=== PATIENT | male | born 1940 | race Caucasian/White ===

== ENCOUNTER 2023-04-24 16:56 | Emergency (ER) | payer OTHER, SELFPAY ==
[2023-04-24] VITALS (13 sets, daily range): BP systolic 128–163; BP diastolic 74–89; PULSE 69–124; RESP 11–24; TEMP 36.3; O2SAT 94–100; BMI 27.6
--- NOTE | 2023-04-24 17:04 | DI.RAD.S_ITS ---
PROCEDURE: XR HIP W PEL IF DONE EDD MIN 4V INDICATIONS: fall with pain TECHNIQUE: AP pelvis with lateral view(s) of both hips. COMPARISON: None. FINDINGS: Bones: No fractures or dislocations. Pelvic ring appears intact. No suspicious bony lesions. Unremarkable left hip arthroplasty hardware can be seen. There is moderate superior joint space narrowing seen of the right hip, with associated remodeling changes with subchondral sclerosis and osteophyte formation. Age-appropriate lower lumbar spine degenerative changes are noted. Soft tissues: The visualized bowel gas pattern is normal. No suspicious soft tissue calcifications. IMPRESSION: No niharika acute plain film abnormality is seen. If there is point tenderness (or other clinical suspicion for a fracture not seen on these images) then a dedicated CT could be considered for further evaluation, if clinically appropriate. Moderate right hip degenerative change. Unremarkable left hip arthroplasty hardware. Dictated by: Jovani Mattson M.D. on 04/24/2023 at 17:45 Approved by: Jovani Mattson M.D. on 04/24/2023 at 17:46
--- NOTE | 2023-04-24 17:10 | DI.RAD.S_ITS ---
PROCEDURE: XR CHEST 1V INDICATIONS: chest pain TECHNIQUE: One view of the chest was acquired. COMPARISON: None. FINDINGS: Surgical changes and devices: Surgical clips are seen below the left hemidiaphragm. Lungs and pleura: Lungs are clear. No pleural effusions or pneumothorax. Mediastinum: Aortic arch calcification is seen. Heart size is enlarged. Bones and chest wall: No suspicious bony lesions. Overlying soft tissues appear unremarkable. IMPRESSION: No acute cardiopulmonary pathology. Dictated by: Greg Paz M.D. on 04/24/2023 at 18:28 Approved by: Greg Paz M.D. on 04/24/2023 at 18:28
--- NOTE | 2023-04-24 17:42 | PC.NURSE ---
Unable to obtain imaging bc patient would not lay still. pt with seemingly advanced dementia.
[2023-04-24 17:55] LABS: Add Manual Diff / Slide Review NO; Basophils Absolute Auto 100 /uL (0-100); Basophils Percent Auto 0.8 % (0-2); Eosinophils Absolute Auto 200 /uL (0-450); Eosinophils Percent Auto 2.1 % (2-4); Hematocrit 34.3 % (41-53); Hemoglobin 11.4 g/dL (13.5-17.5); Lymphocytes Absolute Auto 1500 /uL (1100-4500); Lymphocytes Percent Auto 14.8 % (25-40); Mean Corpuscular HGB Conc 33.4 % (30-36); Mean Corpuscular Hemoglobin 30.9 PG (26-34); Mean Corpuscular Volume 92.7 fL (80-100); Monocytes Absolute Auto 1000 /uL (0-900); Monocytes Percent Auto 10.3 % (3-14); Neutrophils Absolute Auto 7300 /uL (1500-7000); Platelet Count 335 X10^3/uL (150-400); Red Cell Distribution Width 13.3 % (11.6-14.8); White Blood Cell Count 10.1 X10^3/uL (4.5-11.0)
[2023-04-24] MEDS: MORPHINE 2 MG/ML INJ IV (17:59)
[2023-04-24 18:04] LABS: INR 1.3 (0.9-1.3); Prothrombin Time 14.4 SECONDS (10.1-12.7)
[2023-04-24 18:06] LABS: PTT Partial Thromboplastin Tim 27 SECONDS (26-36)
[2023-04-24 18:09] LABS: Alanine Aminotransferase 22 IU/L (<50); Albumin 3.2 g/dL (3.5-5.0); Alkaline Phosphatase 67 U/L (38-126); Aspartate Aminotransferase 25 IU/L (17-59); BUN Creatinine Ratio 20.8 (6-22); Bilirubin Total 0.5 mg/dL (0.2-1.3); Blood Urea Nitrogen 16 mg/dL (9-20); Calcium 8.7 mg/dL (8.4-10.2); Carbon Dioxide 27 mmol/L (22-32); Chloride 103 mmol/L (98-107); Creatine Kinase 41 U/L (55-170); Estimated Glomerular Filt Rate > 60 mL/min (>60); Globulin 3.1 g/dL (1.7-4.1); Glucose 97 mg/dL (80-110); HEMOLYSIS < 15 (0-50); Lipase 84 U/L (23-300); Magnesium 2.2 mg/dL (1.6-2.3); Potassium 3.7 mmol/L (3.4-5.1); Sodium 135 mmol/L (137-145); Total Protein 6.3 g/dL (6.3-8.2)
[2023-04-24 18:21] LABS: Troponin I < 0.012 ng/mL (0.01-0.034)
--- NOTE | 2023-04-24 18:53 | ED_ITS ---
HPI - Fall <Jude Somers DO - Last Filed: 04/28/23 21:34> General Chief Complaint: Fall Stated Complaint: Fall 3 days ago/ L hip pain/ Head LAC Time Seen by Provider: 04/24/23 17:24 Source: EMS Mode of arrival: EMS Limitations: altered mental status History of Present Illness HPI Narrative: Patient is an 82-year-old male. Has a history of dementia. Can not provide any HPI or review of systems. He is not on anticoagulation. He arrives by EMS for evaluation of he decrease in the ability to get around. He does live at a nursing facility. Apparently had a unwitnessed fall a couple days ago. He sustained a injury to his head. This injury is covered with Steri-Strips. Here in the emergency department he can not provide any specific information but he does seem to be in quite a bit of discomfort with any sort of movement. Unsure if this is in his hips or his lower back or other area of his lower extremities. Related Data Previous Rx's Medication Instructions Recorded nitrofurantoin 100 mg PO Q12H 7 days #14 caps 04/25/23 monohydrate/macrocrystals 100 mg capsule (Macrobid) oxycodone 5 mg tablet 5 mg PO Q6H PRN pain #10 tabs 04/25/23 Allergies Allergy/AdvReac Type Severity Reaction Status Date / Time No Known Drug Allergies Allergy Verified 04/24/23 17:06 Review of Systems <Jude Somers DO - Last Filed: 04/28/23 21:34> Review of Systems ROS Unobtainable: Unobtainable due to medical condition Exam <Jude Somers DO - Last Filed: 04/28/23 21:34> Initial Vital Signs Initial Vital Signs: Vital Signs Temperature 97.3 F L 04/24/23 17:06 Pulse Rate 83 04/24/23 17:06 Respiratory Rate 19 04/24/23 17:06 Blood Pressure 163/84 H 04/24/23 17:06 Pulse Oximetry 99 04/24/23 17:06 Oxygen Delivery Method Room Air 04/24/23 17:06 Const General: No ill appearing HENMT Head: contusion (Left parietal region covered with Steri-Strips) Resp Effort & Inspection: normal respiratory effort Auscultation: clear to auscultation bilaterally Cardio Rate: regular rate Rhythm: regular rhythm GI Inspection: normal to inspection and non-distended Skin Other: Steri-Strips covering a small abrasion/laceration to his left parietal region of his scalp Neuro Other: Patient is alert to person but does not know that he is in the hospital. Does not know the circumstances the why he is here. Does not know what year it is. Extrem Other: No gross deformities. Does not seem to have any discomfort with movement of his upper extremities. His pelvis is stable. Does not have discomfort with flexion extension of his hips knees or ankles bilaterally. No discomfort with palpation of his lower back however trying to sit the patient up or move his legs off the bed causes discomfort although he can not specifically tell where this discomfort is. <Andra Zuniga, DO - Last Filed: 04/26/23 10:56> Initial Vital Signs Initial Vital Signs: Vital Signs Temperature 97.3 F L 04/24/23 17:06 Pulse Rate 83 04/24/23 17:06 Respiratory Rate 19 04/24/23 17:06 Blood Pressure 163/84 H 04/24/23 17:06 Pulse Oximetry 99 04/24/23 17:06 Oxygen Delivery Method Room Air 04/24/23 17:06 <Debra Kerr, DO - Last Filed: 04/27/23 18:44> Initial Vital Signs Initial Vital Signs: Vital Signs Temperature 97.3 F L 04/24/23 17:06 Pulse Rate 83 04/24/23 17:06 Respiratory Rate 19 04/24/23 17:06 Blood Pressure 163/84 H 04/24/23 17:06 Pulse Oximetry 99 04/24/23 17:06 Oxygen Delivery Method Room Air 04/24/23 17:06 Course <Jude Somers, DO - Last Filed: 04/28/23 21:34> Orders Ordered: Discontinued Medications Acetaminophen (Acetaminophen 325 Mg Tablet) 650 mg PO Q6H PRN PRN Reason: Fever/Mild Pain (1-3) Hydrocodone Bitart/Acetaminophen (Hydrocodone/Acet 5/325 Tablet) 1 tab PO NOW ONE Stop: 04/24/23 20:06 Last Admin: 04/24/23 20:07 Dose: 1 tab Documented By: SB Finasteride (Finasteride 5 Mg Tablet) 5 mg PO NOW ONE Stop: 04/25/23 07:56 Last Admin: 04/25/23 08:31 Dose: 5 mg Documented By: RB Lidocaine (Lidocaine Patch 1 Each Adh..Patch) 1 each TOP DAILY VANDANA Last Admin: 04/25/23 08:31 Dose: 1 each Documented By: RB Lidocaine (Remove Lidocaine Patch) 1 each TOP BEDTIME VANDANA Morphine Sulfate (Morphine 2 Mg/Ml Inj) 2 mg IV NOW ONE Stop: 04/24/23 17:54 Last Admin: 04/24/23 17:59 Dose: 2 mg Documented By: MAGDALENA Nitrofurantoin Macrocrystals (Nitrofurantoin Er 100 Mg Capsule) 100 mg PO NOW ONE Stop: 04/25/23 08:04 Last Admin: 04/25/23 08:34 Dose: 100 mg Documented By: RB Nystatin (Nystatin Cream 30 Gm) 1 applic TOP DAILY [facility] Last Admin: 04/25/23 08:31 Dose: 1 applic Documented By: RB Oxybutynin (Oxybutynin 5 Mg Tablet) 5 mg PO TID [facility] Last Admin: 04/25/23 08:31 Dose: 5 mg Documented By: RB Oxycodone HCl (Oxycodone Ir 5 Mg Tablet) 5 mg PO Q6H PRN PRN Reason: Pain, Moderate (4-6) Last Admin: 04/25/23 08:33 Dose: 5 mg Documented By: RB Quetiapine Fumarate (Quetiapine 25 Mg Tablet) 25 mg PO NOW ONE Stop: 04/24/23 21:38 Last Admin: 04/24/23 22:02 Dose: 25 mg Documented By: SB Tamsulosin HCl (Tamsulosin 0.4 Mg Capsule) 0.4 mg PO BID [facility] Last Admin: 04/25/23 08:31 Dose: 0.4 mg Documented By: RB Vital Signs Vital signs: Vital Signs - 8 hr 04/25/23 00:30 04/25/23 01:00 04/25/23 01:00 Pulse Rate 69 70 Respiratory Rate Blood Pressure 152/82 H Pulse Oximetry 96 97 Oxygen Delivery Method 04/25/23 01:30 04/25/23 02:00 04/25/23 02:00 Pulse Rate 79 67 Respiratory Rate 12 Blood Pressure 148/77 H Pulse Oximetry 93 94 Oxygen Delivery Method 04/25/23 02:30 04/25/23 03:00 04/25/23 03:01 Pulse Rate 69 67 66 Respiratory Rate Blood Pressure Pulse Oximetry 97 96 97 Oxygen Delivery Method 04/25/23 03:01 04/25/23 03:30 04/25/23 04:00 Pulse Rate 63 Respiratory Rate Blood Pressure 140/69 128/78 Pulse Oximetry 97 Oxygen Delivery Method 04/25/23 04:00 04/25/23 04:30 04/25/23 05:00 Pulse Rate 68 79 Respiratory Rate Blood Pressure 147/77 H Pulse Oximetry 95 95 Oxygen Delivery Method 04/25/23 05:00 04/25/23 05:30 04/25/23 06:00 Pulse Rate 60 58 L 52 L Respiratory Rate Blood Pressure Pulse Oximetry 97 98 99 Oxygen Delivery Method 04/25/23 06:01 04/25/23 06:01 Pulse Rate 76 Respiratory Rate 16 Blood Pressure 158/80 H Pulse Oximetry 98 Oxygen Delivery Method Room Air <Andra Zuniga, - Last Filed: 04/26/23 10:56> Orders Ordered: Discontinued Medications Acetaminophen (Acetaminophen 325 Mg Tablet) 650 mg PO Q6H PRN PRN Reason: Fever/Mild Pain (1-3) Hydrocodone Bitart/Acetaminophen (Hydrocodone/Acet 5/325 Tablet) 1 tab PO NOW ONE Stop: 04/24/23 20:06 Last Admin: 04/24/23 20:07 Dose: 1 tab Documented By: LESLYE Finasteride (Finasteride 5 Mg Tablet) 5 mg PO NOW ONE Stop: 04/25/23 07:56 Last Admin: 04/25/23 08:31 Dose: 5 mg Documented By: CITLALY Lidocaine (Lidocaine Patch 1 Each Adh..Patch) 1 each TOP DAILY VANDANA Last Admin: 04/25/23 08:31 Dose: 1 each Documented By: RB Lidocaine (Remove Lidocaine Patch) 1 each TOP BEDTIME VANDANA Morphine Sulfate (Morphine 2 Mg/Ml Inj) 2 mg IV NOW ONE Stop: 04/24/23 17:54 Last Admin: 04/24/23 17:59 Dose: 2 mg Documented By: MAGDALENA Nitrofurantoin Macrocrystals (Nitrofurantoin Er 100 Mg Capsule) 100 mg PO NOW ONE Stop: 04/25/23 08:04 Last Admin: 04/25/23 08:34 Dose: 100 mg Documented By: CITLALY Nystatin (Nystatin Cream 30 Gm) 1 applic TOP DAILY VANDANA Last Admin: 04/25/23 08:31 Dose: 1 applic Documented By: RB Oxybutynin (Oxybutynin 5 Mg Tablet) 5 mg PO TID [facility] Last Admin: 04/25/23 08:31 Dose: 5 mg Documented By: RB Oxycodone HCl (Oxycodone Ir 5 Mg Tablet) 5 mg PO Q6H PRN PRN Reason: Pain, Moderate (4-6) Last Admin: 04/25/23 08:33 Dose: 5 mg Documented By: RB Quetiapine Fumarate (Quetiapine 25 Mg Tablet) 25 mg PO NOW ONE Stop: 04/24/23 21:38 Last Admin: 04/24/23 22:02 Dose: 25 mg Documented By: LESLYE Tamsulosin HCl (Tamsulosin 0.4 Mg Capsule) 0.4 mg PO BID [facility] Last Admin: 04/25/23 08:31 Dose: 0.4 mg Documented By: RB Vital Signs Vital signs: Vital Signs - 8 hr 04/25/23 00:30 04/25/23 01:00 04/25/23 01:00 Pulse Rate 69 70 Respiratory Rate Blood Pressure 152/82 H Pulse Oximetry 96 97 Oxygen Delivery Method 04/25/23 01:30 04/25/23 02:00 04/25/23 02:00 Pulse Rate 79 67 Respiratory Rate 12 Blood Pressure 148/77 H Pulse Oximetry 93 94 Oxygen Delivery Method 04/25/23 02:30 04/25/23 03:00 04/25/23 03:01 Pulse Rate 69 67 66 Respiratory Rate Blood Pressure Pulse Oximetry 97 96 97 Oxygen Delivery Method 04/25/23 03:01 04/25/23 03:30 04/25/23 04:00 Pulse Rate 63 Respiratory Rate Blood Pressure 140/69 128/78 Pulse Oximetry 97 Oxygen Delivery Method 04/25/23 04:00 04/25/23 04:30 04/25/23 05:00 Pulse Rate 68 79 Respiratory Rate Blood Pressure 147/77 H Pulse Oximetry 95 95 Oxygen Delivery Method 04/25/23 05:00 04/25/23 05:30 04/25/23 06:00 Pulse Rate 60 58 L 52 L Respiratory Rate Blood Pressure Pulse Oximetry 97 98 99 Oxygen Delivery Method 04/25/23 06:01 04/25/23 06:01 Pulse Rate 76 Respiratory Rate 16 Blood Pressure 158/80 H Pulse Oximetry 98 Oxygen Delivery Method Room Air <Debra Botnick, DO - Last Filed: 04/27/23 18:44> Orders Ordered: Discontinued Medications Acetaminophen (Acetaminophen 325 Mg Tablet) 650 mg PO Q6H PRN PRN Reason: Fever/Mild Pain (1-3) Hydrocodone Bitart/Acetaminophen (Hydrocodone/Acet 5/325 Tablet) 1 tab PO NOW ONE Stop: 04/24/23 20:06 Last Admin: 04/24/23 20:07 Dose: 1 tab Documented By: SB Finasteride (Finasteride 5 Mg Tablet) 5 mg PO NOW ONE Stop: 04/25/23 07:56 Last Admin: 04/25/23 08:31 Dose: 5 mg Documented By: RB Lidocaine (Lidocaine Patch 1 Each Adh..Patch) 1 each TOP DAILY VANDANA Last Admin: 04/25/23 08:31 Dose: 1 each Documented By: RB Lidocaine (Remove Lidocaine Patch) 1 each TOP BEDTIME VANDANA Morphine Sulfate (Morphine 2 Mg/Ml Inj) 2 mg IV NOW ONE Stop: 04/24/23 17:54 Last Admin: 04/24/23 17:59 Dose: 2 mg Documented By: MAGDALENA Nitrofurantoin Macrocrystals (Nitrofurantoin Er 100 Mg Capsule) 100 mg PO NOW ONE Stop: 04/25/23 08:04 Last Admin: 04/25/23 08:34 Dose: 100 mg Documented By: RB Nystatin (Nystatin Cream 30 Gm) 1 applic TOP DAILY [facility] Last Admin: 04/25/23 08:31 Dose: 1 applic Documented By: RB Oxybutynin (Oxybutynin 5 Mg Tablet) 5 mg PO TID [facility] Last Admin: 04/25/23 08:31 Dose: 5 mg Documented By: RB Oxycodone HCl (Oxycodone Ir 5 Mg Tablet) 5 mg PO Q6H PRN PRN Reason: Pain, Moderate (4-6) Last Admin: 04/25/23 08:33 Dose: 5 mg Documented By: RB Quetiapine Fumarate (Quetiapine 25 Mg Tablet) 25 mg PO NOW ONE Stop: 04/24/23 21:38 Last Admin: 04/24/23 22:02 Dose: 25 mg Documented By: SB Tamsulosin HCl (Tamsulosin 0.4 Mg Capsule) 0.4 mg PO BID [facility] Last Admin: 04/25/23 08:31 Dose: 0.4 mg Documented By: RB Vital Signs Vital signs: Vital Signs - 8 hr 04/25/23 00:30 04/25/23 01:00 04/25/23 01:00 Pulse Rate 69 70 Respiratory Rate Blood Pressure 152/82 H Pulse Oximetry 96 97 Oxygen Delivery Method 04/25/23 01:30 04/25/23 02:00 04/25/23 02:00 Pulse Rate 79 67 Respiratory Rate 12 Blood Pressure 148/77 H Pulse Oximetry 93 94 Oxygen Delivery Method 04/25/23 02:30 04/25/23 03:00 04/25/23 03:01 Pulse Rate 69 67 66 Respiratory Rate Blood Pressure Pulse Oximetry 97 96 97 Oxygen Delivery Method 04/25/23 03:01 04/25/23 03:30 04/25/23 04:00 Pulse Rate 63 Respiratory Rate Blood Pressure 140/69 128/78 Pulse Oximetry 97 Oxygen Delivery Method 04/25/23 04:00 04/25/23 04:30 04/25/23 05:00 Pulse Rate 68 79 Respiratory Rate Blood Pressure 147/77 H Pulse Oximetry 95 95 Oxygen Delivery Method 04/25/23 05:00 04/25/23 05:30 04/25/23 06:00 Pulse Rate 60 58 L 52 L Respiratory Rate Blood Pressure Pulse Oximetry 97 98 99 Oxygen Delivery Method 04/25/23 06:01 04/25/23 06:01 Pulse Rate 76 Respiratory Rate 16 Blood Pressure 158/80 H Pulse Oximetry 98 Oxygen Delivery Method Room Air MDM - Fall <Jude Somers, DO - Last Filed: 04/28/23 21:34> Lab Data Attestation: I reviewed the patient's lab results. 04/24/23 17:45 04/24/23 17:45 Labs: Lab Results 04/24/23 04/24/23 04/24/23 Range/Units 17:45 17:45 17:45 WBC 10.1 (4.5-11.0) X10^3/uL RBC 3.70 L (4.5-5.9) X10^6/uL Hgb 11.4 L (13.5-17.5) g/dL Hct 34.3 L (41-53) % MCV 92.7 (80-100) fL MCH 30.9 (26-34) PG MCHC 33.4 (30-36) % RDW 13.3 (11.6-14.8) % Plt Count 335 (150-400) X10^3/uL Neut % (Auto) 72.0 (50-75) % Lymph % (Auto) 14.8 L (25-40) % Cloud % (Auto) 10.3 (3-14) % Eos % (Auto) 2.1 (2-4) % Baso % (Auto) 0.8 (0-2) % Neut # (Auto) 7300 H (9608-5086) /uL Lymph # (Auto) 1500 (7027-8773) /uL Cloud # (Auto) 1000 H (0-900) /uL Eos # (Auto) 200 (0-450) /uL Baso # (Auto) 100 (0-100) /uL PT 14.4 H (10.1-12.7) SECONDS INR 1.3 (0.9-1.3) APTT 27 (26-36) SECONDS Sodium 135 L (137-145) mmol/L Potassium 3.7 (3.4-5.1) mmol/L Chloride 103 (98-107) mmol/L Carbon Dioxide 27 (22-32) mmol/L BUN 16 (9-20) mg/dL Creatinine 0.77 (0.66-1.25) mg/dL Estimated GFR > 60 (>60) mL/min BUN/Creatinine Ratio 20.8 (6-22) Glucose 97 (80-110) mg/dL Calcium 8.7 (8.4-10.2) mg/dL Magnesium 2.2 (1.6-2.3) mg/dL Total Bilirubin 0.5 (0.2-1.3) mg/dL AST 25 (17-59) IU/L ALT 22 (<50) IU/L Alkaline Phosphatase 67 (38-126) U/L Total Creatine Kinase 41 L (55-170) U/L Troponin I < 0.012 (0.01-0.034) ng/mL Total Protein 6.3 (6.3-8.2) g/dL Albumin 3.2 L (3.5-5.0) g/dL Globulin 3.1 (1.7-4.1) g/dL Albumin/Globulin Ratio 1.0 (1.0-2.8) Lipase 84 (23-300) U/L Urine RBC (0-5/HPF) Urine WBC (0-5/HPF) Ur Squamous Epith Cells (0-5/HPF) Urine Bacteria (None) Micro UA Comment 04/25/23 Range/Units 04:45 WBC (4.5-11.0) X10^3/uL RBC (4.5-5.9) X10^6/uL Hgb (13.5-17.5) g/dL Hct (41-53) % MCV (80-100) fL MCH (26-34) PG MCHC (30-36) % RDW (11.6-14.8) % Plt Count (150-400) X10^3/uL Neut % (Auto) (50-75) % Lymph % (Auto) (25-40) % Cloud % (Auto) (3-14) % Eos % (Auto) (2-4) % Baso % (Auto) (0-2) % Neut # (Auto) (9596-2042) /uL Lymph # (Auto) (8738-9888) /uL Cloud # (Auto) (0-900) /uL Eos # (Auto) (0-450) /uL Baso # (Auto) (0-100) /uL PT (10.1-12.7) SECONDS INR (0.9-1.3) APTT (26-36) SECONDS Sodium (137-145) mmol/L Potassium (3.4-5.1) mmol/L Chloride (98-107) mmol/L Carbon Dioxide (22-32) mmol/L BUN (9-20) mg/dL Creatinine (0.66-1.25) mg/dL Estimated GFR (>60) mL/min BUN/Creatinine Ratio (6-22) Glucose (80-110) mg/dL Calcium (8.4-10.2) mg/dL Magnesium (1.6-2.3) mg/dL Total Bilirubin (0.2-1.3) mg/dL AST (17-59) IU/L ALT (<50) IU/L Alkaline Phosphatase (38-126) U/L Total Creatine Kinase (55-170) U/L Troponin I (0.01-0.034) ng/mL Total Protein (6.3-8.2) g/dL Albumin (3.5-5.0) g/dL Globulin (1.7-4.1) g/dL Albumin/Globulin Ratio (1.0-2.8) Lipase (23-300) U/L Urine RBC 0-1/hpf (0-5/HPF) Urine WBC >100/hpf H (0-5/HPF) Ur Squamous Epith Cells None seen (0-5/HPF) Urine Bacteria Many (>30) H (None) Micro UA Comment * Urine Dip Bedside Urine Glucose Negative Bedside Urine Bilirubin - Negative Bedside Urine Ketone - Negative Urine Specific Clemons 1.015 Bedside Urine Occult Blood +/- Bedside Urine pH 6.0 Bedside Urine Protein - Negative Bedside Urine Urobilinogen - Negative Bedside Urine Nitrite + Positive Bedside Urine Leukocytes +++ 500 Esterase Imaging Data Extremity x-ray #1: Radiologist's Impression: PROCEDURE:? XR HIP W PEL IF DONE EDD MIN 4V ? INDICATIONS:? fall with pain ? TECHNIQUE:? AP pelvis with lateral view(s) of both hips. ? COMPARISON:? None. ? FINDINGS:? ? Bones:? No fractures or dislocations.? Pelvic ring appears intact.? No suspicious bony lesions.? ? Unremarkable left hip arthroplasty hardware can be seen. ? There is moderate superior joint space narrowing seen of the right hip, with associated remodeling changes with subchondral sclerosis and osteophyte formation.? ? Age-appropriate lower lumbar spine degenerative changes are noted. ? Soft tissues:? The visualized bowel gas pattern is normal.? No suspicious soft tissue calcifications.? ? ? IMPRESSION:? No niharika acute plain film abnormality is seen. ? If there is point tenderness (or other clinical suspicion for a fracture not seen on these images) then a dedicated CT could be considered for further evaluation, if clinically appropriate. ? Moderate right hip degenerative change. ? Unremarkable left hip arthroplasty hardware. Chest x-ray: Radiologist's Impression: PROCEDURE:? XR CHEST 1V ? INDICATIONS:? chest pain ? TECHNIQUE:? One view of the chest was acquired.? ? COMPARISON:? None. ? FINDINGS:? ? Surgical changes and devices:? Surgical clips are seen below the left hemidiaphragm.? ? Lungs and pleura:? Lungs are clear.? No pleural effusions or pneumothorax.? ? Mediastinum:? Aortic arch calcification is seen.? Heart size is enlarged. ? Bones and chest wall:? No suspicious bony lesions.? Overlying soft tissues appear unremarkable.? ? IMPRESSION:? No acute cardiopulmonary pathology. lumbar spine X-ray: Radiologist's Impression: PROCEDURE:? XR LUMBAR SPINE 2-3V ? INDICATIONS:? LBP after fall ? TECHNIQUE:? 4 views of the lumbar spine were acquired.? ? COMPARISON:? None. ? FINDINGS:? ? Bones:? Evaluation limited by suboptimal positioning.? 5? ccz-zee-dwrskoo v ertebrae are present.? There is minimal retrolisthesis at L1-L2.? There is a superior endplate compression fracture of the L1 vertebral body of indeterminate acuity, with up to approximately 50-55% loss of height.? There is mild associated bony spinal canal narrowing at L1.? A mild compression deformity is also demonstrated at the anterior inferior aspect of the T12 vertebral body.? There is multilevel degenerative disc disease including moderate to severe degeneration at L4-5 and L5-S1.? There is also moderate facet arthropathy within the lower lumbar spine. ? Soft tissues:? Overlying bowel gas pattern is normal.? No suspicious soft tissue calcifications.? ? ? IMPRESSION:? ? 1. Superior endplate compression fracture of the L1 vertebral body of indeterminate acuity. ? 2. Associated mild bony spinal canal narrowing at L1. ? 3. Mild compression deformity at the anterior inferior endplate of T12. ? 4. Multilevel degenerative disc disease including moderate to severe degeneration at L4-5 and L5-S1. ? 5. Moderate facet arthropathy in the lower lumbar spine.? MDM Narrative Medical decision making narrative: Patient is confused. His labs are unremarkable. He does have a nitrite positive urine. He does get catheterized every 6 hours and nursing staff states his says that he gets frequent urinary tract infections. It is very difficult to pinpoint where the patient is having discomfort. His x-rays are u nremarkable except for his lumbar spine which shows potential L1 fracture. Unsure if this is the spot where he is having discomfort on his back. Unsure how new this fracture is. Patient was unable to even sit up in bed because of discomfort. When he was lying in bed he does seem to be somewhat comfortable. I did discuss the case with the FURNACE OPERATOR Ja the night hospitalist who stated that has a now the patient does not meet admission criteria. Social work consult was placed along with physical therapy. Patient will need to be re- evaluated. Care turned over to day emergency provide her to follow-up who disposition. <Andra Zuniga, DO - Last Filed: 04/26/23 10:56> Lab Data Labs: Lab Results 04/24/23 04/24/23 04/24/23 Range/Units 17:45 17:45 17:45 WBC 10.1 (4.5-11.0) X10^3/uL RBC 3.70 L (4.5-5.9) X10^6/uL Hgb 11.4 L (13.5-17.5) g/dL Hct 34.3 L (41-53) % MCV 92.7 (80-100) fL MCH 30.9 (26-34) PG MCHC 33.4 (30-36) % RDW 13.3 (11.6-14.8) % Plt Count 335 (150-400) X10^3/uL Neut % (Auto) 72.0 (50-75) % Lymph % (Auto) 14.8 L (25-40) % Cloud % (Auto) 10.3 (3-14) % Eos % (Auto) 2.1 (2-4) % Baso % (Auto) 0.8 (0-2) % Neut # (Auto) 7300 H (7305-8380) /uL Lymph # (Auto) 1500 (8770-5713) /uL Cloud # (Auto) 1000 H (0-900) /uL Eos # (Auto) 200 (0-450) /uL Baso # (Auto) 100 (0-100) /uL PT 14.4 H (10.1-12.7) SECONDS INR 1.3 (0.9-1.3) APTT 27 (26-36) SECONDS Sodium 135 L (137-145) mmol/L Potassium 3.7 (3.4-5.1) mmol/L Chloride 103 (98-107) mmol/L Carbon Dioxide 27 (22-32) mmol/L BUN 16 (9-20) mg/dL Creatinine 0.77 (0.66-1.25) mg/dL Estimated GFR > 60 (>60) mL/min BUN/Creatinine Ratio 20.8 (6-22) Glucose 97 (80-110) mg/dL Calcium 8.7 (8.4-10.2) mg/dL Magnesium 2.2 (1.6-2.3) mg/dL Total Bilirubin 0.5 (0.2-1.3) mg/dL AST 25 (17-59) IU/L ALT 22 (<50) IU/L Alkaline Phosphatase 67 (38-126) U/L Total Creatine Kinase 41 L (55-170) U/L Troponin I < 0.012 (0.01-0.034) ng/mL Total Protein 6.3 (6.3-8.2) g/dL Albumin 3.2 L (3.5-5.0) g/dL Globulin 3.1 (1.7-4.1) g/dL Albumin/Globulin Ratio 1.0 (1.0-2.8) Lipase 84 (23-300) U/L Urine RBC (0-5/HPF) Urine WBC (0-5/HPF) Ur Squamous Epith Cells (0-5/HPF) Urine Bacteria (None) Micro UA Comment 04/25/23 Range/Units 04:45 WBC (4.5-11.0) X10^3/uL RBC (4.5-5.9) X10^6/uL Hgb (13.5-17.5) g/dL Hct (41-53) % MCV (80-100) fL MCH (26-34) PG MCHC (30-36) % RDW (11.6-14.8) % Plt Count (150-400) X10^3/uL Neut % (Auto) (50-75) % Lymph % (Auto) (25-40) % Cloud % (Auto) (3-14) % Eos % (Auto) (2-4) % Baso % (Auto) (0-2) % Neut # (Auto) (3749-3452) /uL Lymph # (Auto) (7503-2020) /uL Cloud # (Auto) (0-900) /uL Eos # (Auto) (0-450) /uL Baso # (Auto) (0-100) /uL PT (10.1-12.7) SECONDS INR (0.9-1.3) APTT (26-36) SECONDS Sodium (137-145) mmol/L Potassium (3.4-5.1) mmol/L Chloride (98-107) mmol/L Carbon Dioxide (22-32) mmol/L BUN (9-20) mg/dL Creatinine (0.66-1.25) mg/dL Estimated GFR (>60) mL/min BUN/Creatinine Ratio (6-22) Glucose (80-110) mg/dL Calcium (8.4-10.2) mg/dL Magnesium (1.6-2.3) mg/dL Total Bilirubin (0.2-1.3) mg/dL AST (17-59) IU/L ALT (<50) IU/L Alkaline Phosphatase (38-126) U/L Total Creatine Kinase (55-170) U/L Troponin I (0.01-0.034) ng/mL Total Protein (6.3-8.2) g/dL Albumin (3.5-5.0) g/dL Globulin (1.7-4.1) g/dL Albumin/Globulin Ratio (1.0-2.8) Lipase (23-300) U/L Urine RBC 0-1/hpf (0-5/HPF) Urine WBC >100/hpf H (0-5/HPF) Ur Squamous Epith Cells None seen (0-5/HPF) Urine Bacteria Many (>30) H (None) Micro UA Comment * Urine Dip Bedside Urine Glucose Negative Bedside Urine Bilirubin - Negative Bedside Urine Ketone - Negative Urine Specific Clemons 1.015 Bedside Urine Occult Blood +/- Bedside Urine pH 6.0 Bedside Urine Protein - Negative Bedside Urine Urobilinogen - Negative Bedside Urine Nitrite + Positive Bedside Urine Leukocytes +++ 500 Esterase MDM Narrative Medical decision making narrative: Patient is confused. His labs are unremarkable. He does have a nitrite positive urine. He does get catheterized every 6 hours and nursing staff states his says that he gets frequent urinary tract infections. It is very difficult to pinpoint where the patient is having discomfort. His x-rays are unremarkable except for his lumbar spine which shows potential L1 fracture. Unsure if this is the spot where he is having discomfort on his back. Unsure how new this fracture is. Patient was unable to even sit up in bed because of discomfort. When he was lying in bed he does seem to be somewhat comfortable. I did discuss the case with the FURNACE OPERATOR Ja the night hospitalist who stated that has a now the patient does not meet admission criteria. Social work consult was placed along with physical therapy. Patient will need to be re- evaluated. Care turned over to day emergency provide her to follow-up who disposition. 04/25/23 Mank: Patient signed out to myself by Dr. Somers. Patient seen independently evaluated by myself you can tell me his name, he is very pleasant in conversation but is confused. Reportedly is catheterization by staff every 6 hours if his facility, he does have changes on his urine consistent with UTI this could be colonization but would treat at this time has changes consistent with potential L1 fracture x-ray but stated that these are known. Patient was quite uncomfortable last night. Was given some pain medications. No other clear fractures or changes noted. Patient's labs otherwise do not show any emergent changes. Patient has been comfortable here in the department, we re-co ntacted his facility [facility]. They are happy to accept him back feel comfortable after discussing they note that patient does not have any narcotic pain medication available he used to but that is no longer available and requested prescription available for patient patient was also sent with [facility] iption for Macrobid. Return precautions. <Debra Kerr, DO - Last Filed: 04/27/23 18:44> Lab Data Labs: Lab Results 04/24/23 04/24/23 04/24/23 Range/Units 17:45 17:45 17:45 WBC 10.1 (4.5-11.0) X10^3/uL RBC 3.70 L (4.5-5.9) X10^6/uL Hgb 11.4 L (13.5-17.5) g/dL Hct 34.3 L (41-53) % MCV 92.7 (80-100) fL MCH 30.9 (26-34) PG MCHC 33.4 (30-36) % RDW 13.3 (11.6-14.8) % Plt Count 335 (150-400) X10^3/uL Neut % (Auto) 72.0 (50-75) % Lymph % (Auto) 14.8 L (25-40) % Cloud % (Auto) 10.3 (3-14) % Eos % (Auto) 2.1 (2-4) % Baso % (Auto) 0.8 (0-2) % Neut # (Auto) 7300 H (0240-5602) /uL Lymph # (Auto) 1500 (9890-0956) /uL Cloud # (Auto) 1000 H (0-900) /uL Eos # (Auto) 200 (0-450) /uL Baso # (Auto) 100 (0-100) /uL PT 14.4 H (10.1-12.7) SECONDS INR 1.3 (0.9-1.3) APTT 27 (26-36) SECONDS Sodium 135 L (137-145) mmol/L Potassium 3.7 (3.4-5.1) mmol/L Chloride 103 (98-107) mmol/L Carbon Dioxide 27 (22-32) mmol/L BUN 16 (9-20) mg/dL Creatinine 0.77 (0.66-1.25) mg/dL Estimated GFR > 60 (>60) mL/min BUN/Creatinine Ratio 20.8 (6-22) Glucose 97 (80-110) mg/dL Calcium 8.7 (8.4-10.2) mg/dL Magnesium 2.2 (1.6-2.3) mg/dL Total Bilirubin 0.5 (0.2-1.3) mg/dL AST 25 (17-59) IU/L ALT 22 (<50) IU/L Alkaline Phosphatase 67 (38-126) U/L Total Creatine Kinase 41 L (55-170) U/L Troponin I < 0.012 (0.01-0.034) ng/mL Total Protein 6.3 (6.3-8.2) g/dL Albumin 3.2 L (3.5-5.0) g/dL Globulin 3.1 (1.7-4.1) g/dL Albumin/Globulin Ratio 1.0 (1.0-2.8) Lipase 84 (23-300) U/L Urine RBC (0-5/HPF) Urine WBC (0-5/HPF) Ur Squamous Epith Cells (0-5/HPF) Urine Bacteria (None) Micro UA Comment 04/25/23 Range/Units 04:45 WBC (4.5-11.0) X10^3/uL RBC (4.5-5.9) X10^6/uL Hgb (13.5-17.5) g/dL Hct (41-53) % MCV (80-100) fL MCH (26-34) PG MCHC (30-36) % RDW (11.6-14.8) % Plt Count (150-400) X10^3/uL Neut % (Auto) (50-75) % Lymph % (Auto) (25-40) % Cloud % (Auto) (3-14) % Eos % (Auto) (2-4) % Baso % (Auto) (0-2) % Neut # (Auto) (0374-1336) /uL Lymph # (Auto) (7151-3291) /uL Cloud # (Auto) (0-900) /uL Eos # (Auto) (0-450) /uL Baso # (Auto) (0-100) /uL PT (10.1-12.7) SECONDS INR (0.9-1.3) APTT (26-36) SECONDS Sodium (137-145) mmol/L Potassium (3.4-5.1) mmol/L Chloride (98-107) mmol/L Carbon Dioxide (22-32) mmol/L BUN (9-20) mg/dL Creatinine (0.66-1.25) mg/dL Estimated GFR (>60) mL/min BUN/Creatinine Ratio (6-22) Glucose (80-110) mg/dL Calcium (8.4-10.2) mg/dL Magnesium (1.6-2.3) mg/dL Total Bilirubin (0.2-1.3) mg/dL AST (17-59) IU/L ALT (<50) IU/L Alkaline Phosphatase (38-126) U/L Total Creatine Kinase (55-170) U/L Troponin I (0.01-0.034) ng/mL Total Protein (6.3-8.2) g/dL Albumin (3.5-5.0) g/dL Globulin (1.7-4.1) g/dL Albumin/Globulin Ratio (1.0-2.8) Lipase (23-300) U/L Urine RBC 0-1/hpf (0-5/HPF) Urine WBC >100/hpf H (0-5/HPF) Ur Squamous Epith Cells None seen (0-5/HPF) Urine Bacteria Many (>30) H (None) Micro UA Comment * Urine Dip Bedside Urine Glucose Negative Bedside Urine Bilirubin - Negative Bedside Urine Ketone - Negative Urine Specific Clemons 1.015 Bedside Urine Occult Blood +/- Bedside Urine pH 6.0 Bedside Urine Protein - Negative Bedside Urine Urobilinogen - Negative Bedside Urine Nitrite + Positive Bedside Urine Leukocytes +++ 500 Esterase MDM Narrative Medical decision making narrative: Patient is confused. His labs are unremarkable. He does have a nitrite positive urine. He does get catheterized every 6 hours and nursing staff states his says that he gets frequent urinary tract infections. It is very difficult to pinpoint where the patient is having discomfort. His x-rays are unremarkable except for his lumbar spine which shows potential L1 fracture. Unsure if this is the spot where he is having discomfort on his back. Unsure how new this fracture is. Patient was unable to even sit up in bed because of discomfort. When he was lying in bed he does seem to be somewhat comfortable. I did discuss the case with the FURNACE OPERATOR Ja the [facility] hospitalist who stated that has a now the patient does not meet admission criteria. Social work consult was placed along with physical therapy. Patient will need to be re- evaluated. Care turned over to day emergency provide her to follow-up who dispo sition. 04/25/23 Mank: Patient signed out to myself by Dr. Somers. Patient seen independently evaluated by myself you can tell me his name, he is very pleasant in conversation but is confused. Reportedly is catheterization by staff every 6 hours if his facility, he does have changes on his urine consistent with UTI this could be colonization but would treat at this time has changes consistent w ith potential L1 fracture x-ray but stated that these are known. Patient was quite uncomfortable last night. Was given some pain medications. No other clear fractures or changes noted. Patient's labs otherwise do not show any emergent changes. Patient has been comfortable here in the department, we re- contacted his facility [facility]. They are happy to accept him back feel comfortable after discussing they note that patient does not have any narcotic pain medication available he used to but that is no longer available and requested prescription available for patient patient was also sent with prescription for Macrobid. Return precautions. 04/27/23 18:44 Urinalysis positive for Klebsiella and sensitive to Macrobid. But sensitive to Keflex. Keflex is called in by nursing staff to patient's pharmacy of choice. Patient is called by nursing staff to update medication Discharge Plan Departure Patient Disposition: Assisted Living Clinical Impression: Urinary tract infection, Acute exacerbation of chronic low back pain Activity Restrictions/Additional Instructions: Follow-up with your physician this week. Your workup today does show show a UTI this may be colonization but a prescription has been sent. Please take this daily. You received your 1st dose of here in the emergency department today. Imaging of the back shows what is likely an old L1 vertebral body endplate compression fracture at L1 as well as T12 and degenerative changes L4 through S1. You may take Tylenol up to a 1000 mg every 6 hours as needed for pain You may take 1-2 tablets of oxycodone every 6 hours as needed for pain. This medication can make you sleepy do not drive, perform hazardous activities or make any major decisions while taking it. This medication will make you constipated please take a stool softener once to twice daily until stools are soft and regular. Prescription printed. Please return for new or worsening changes, sudden alterations in mental status, difficulty with breathing, chest pain, rapidly worsening back pain, new numbness, tingling or weakness, loss of bowel control or other new or concerning changes. Prescriptions: New oxycodone 5 mg tablet 5 mg PO Q6H PRN (Reason: pain) Qty: 10 0RF nitrofurantoin monohyd/m-cryst [Macrobid] 100 mg capsule 100 mg PO Q12H 7 Days Qty: 14 0RF Rx Instructions: must administer with a meal/food Stand Alone Forms: Patient Portal/API
--- NOTE | 2023-04-24 18:55 | DI.RAD.S_ITS ---
PROCEDURE: XR LUMBAR SPINE 2-3V INDICATIONS: LBP after fall TECHNIQUE: 4 views of the lumbar spine were acquired. COMPARISON: None. FINDINGS: Bones: Evaluation limited by suboptimal positioning. 5 [id number] vertebrae are present. There is minimal retrolisthesis at L1-L2. There is a superior endplate compression fracture of the L1 vertebral body of indeterminate acuity, with up to approximately 50-55% loss of height. There is mild associated bony spinal canal narrowing at L1. A mild compression deformity is also demonstrated at the anterior inferior aspect of the T12 vertebral body. There is multilevel degenerative disc disease including moderate to severe degeneration at L4-5 and L5-S1. There is also moderate facet arthropathy within the lower lumbar spine. Soft tissues: Overlying bowel gas pattern is normal. No suspicious soft tissue calcifications. IMPRESSION: 1. Superior endplate compression fracture of the L1 vertebral body of indeterminate acuity. 2. Associated mild bony spinal canal narrowing at L1. 3. Mild compression deformity at the anterior inferior endplate of T12. 4. Multilevel degenerative disc disease including moderate to severe degeneration at L4-5 and L5-S1. 5. Moderate facet arthropathy in the lower lumbar spine. Dictated by: Syed Palmer M.D. on 04/24/2023 at 22:18 Approved by: Syed Palmer M.D. on 04/24/2023 at 22:25
[2023-04-24] MEDS: HYDROCODONE/ACET 5/325 TABLET 1 TAB PO (20:07)
--- NOTE | 2023-04-24 21:43 | PC.NURSE ---
called requesting update, she was informed on plan of care. states she will call back in a hour for results. states that patient is wheel chair bound and requires straight caths to drain bladder.
[2023-04-24] MEDS: QUETIAPINE 25 MG TABLET PO (22:02)
[2023-04-25] VITALS (21 sets, daily range): BP systolic 128–158; BP diastolic 64–93; PULSE 52–84; RESP 12–16; O2SAT 92–99
[2023-04-25 05:43] LABS: RBC Urine 0-1/HPF (0-5/HPF)
[2023-04-25 05:44] LABS: Bacteria Urine Many (>30); Squamous Epithelial Cell Urine None Seen (0-5/HPF); WBC Urine >100/HPF (0-5/HPF)
[2023-04-25] MEDS: NYSTATIN CREAM 30 GM 1 APPLIC TOP (08:31)
[2023-04-25] MEDS: LIDOCAINE PATCH 1 EACH ADH..PATCH TOP (08:31)
[2023-04-25] MEDS: TAMSULOSIN 0.4 MG CAPSULE PO (08:31)
[2023-04-25] MEDS: OXYBUTYNIN 5 MG TABLET PO (08:31)
[2023-04-25] MEDS: FINASTERIDE 5 MG TABLET PO (08:31)
[2023-04-25] MEDS: OXYCODONE IR 5 MG TABLET PO (08:33)
[2023-04-25] MEDS: NITROFURANTOIN ER 100 MG CAPSULE PO (08:34)
--- NOTE | 2023-04-25 09:06 | PC.NURSE ---
This RN gave report to Vimal GALLO from [facility]. Patient report given to PABLO Alexander at [facility]. Patient was given 2 hard scripts and these were given to EMT to transport to facility. Patient glasses were in a belonging bag and given to [facility] crew for transport. Patient crocs were not transported. This RN transported this patient crocs to facility after this shift as I pass the other facility going home. Charge nurse notified and agreed that this was acceptable.
== END 2023-04-25 08:52 ==
PROVIDERS: Emergency Medicine; Emergency Provider Emergency Medicine
DX: N39.0 Urinary tract infection, site not specified (principal); M54.50 Low back pain, unspecified; R07.9 Chest pain, unspecified; W19.XXXA Unspecified fall, initial encounter; F03.90 Unspecified dementia, unspecified severity, without behavioral disturbance, psychotic disturbance, mood disturbance, and anxiety
CPT/HCPCS: 36415; 51701; 71045; 72100; 73522; 80053; 81003; 81015; 82550; 83690; 83735; 84484; 85025; 85610; 85730; 87077; 87086; 87186; 93005; 96374; 99284; J2270